=== PATIENT | female | born 1985 | race Caucasian/White ===

== ENCOUNTER → 2016-04-05 | Outpatient (CLI) | payer OTHER ==
--- NOTE | 2016-04-05 18:48 | US ---
Ultrasound Obstetric second trimester, greater than 14 weeks Indication: The estimated gestational age by LMP is 18 weeks and 6 days yielding an EDC of 08/31/2016. Comparison: None. Findings: Number: 1 Presentation: Transverse, head to maternal left Placental Location: Posterior without previa Cervix: 4 cm MVP: 2.8 cm Heart Rate: 149 bpm. Biometry: Biparietal Diameter: 37.12 mm 17 weeks, 3 days Head Circumference: 145.47 mm 17 weeks, 6 days Abdominal Circumference: 119.19 mm 17 weeks, 5 days Femur Length: 25.78 mm 17 weeks, 6 days Humerus Length: 24.87 mm 17 weeks, 6 days Transcerebellar Diameter: 17.4 mm 17 weeks, 4 days HC/AC: 1.22 (1.07-1.29) FL/BPD: 69% FL/AC: 22% Average Ultrasound Age: 17 weeks, 5 days EDC Based on Today's Average Ultrasound Age: 709/08/2016 Estimated weight is 207 gm +/- 30 gm. The estimated weight is at the 4 % based on previous dating. ANATOMY SURVEY: Lateral ventricles, cisterna magna, nuchal thickness, bilateral kidneys, three-vessel cord, spi ne, stomach, and bladder visualized. Four-chamber heart not well visualized. Impression: 1. Living harrison in transverse presentation. 2. Size less than dates. Fetus weight at 4 percentile based on LMP. 3. Limited anatomy. 4. Recommend high value associate consult.
== END ==
LOC: BMCIMAGING 13:47
PROVIDERS: ATTEND Midwife
DX: O36.5920 Maternal care for other known or suspected poor fetal growth, second trimester, not applicable or unspecified (principal); Z3A.18 18 weeks gestation of pregnancy

== ENCOUNTER 2017-12-20 10:22 | Emergency (ER) | payer OTHER ==
--- NOTE | 2017-12-20 10:32 | EDPHY ---
H & P Time Seen by Provider: 12/20/17 10:31 HPI/ROS: HPI: This is a 32-year-old female who presents with Chief Complaint: abdominal pain Location: Suprapubic abdominal Quality: Pain Duration: Since last night Signs and Symptoms: no fever, no nausea, no vomiting, no hematemesis, no blood in stool, no abdominal bloating, no diarrhea, no back pain, no urinary symptoms , no vaginal bleeding/discharge, no indigestion, no chest pain, no shortness of breath Timing: Acute, constant Severity: Moderate Context: Patient has 4 living children, presents with complaints of sudden onset last night of suprapubic left greater than right pain that is constant and nonradiating in nature. She reports that she is midcycle. Last menstrual period was 2 weeks ago. Last sexual intercourse was 1 week ago. Denies any dysuria, vaginal discharge, vaginal bleeding. Patient reports that she is eating and drinking without difficulty. Had a bowel movement this morning. Denies nausea, vomiting, fever, diarrhea. Modifying Factors: Comment: ROS: A comprehensive 10 system review of systems is otherwise negative aside from elements mentioned in the history of present illness. MEDICAL/SURGICAL/SOCIAL HISTORY: Medical history: Generally healthy. Does not take any regular medications. Surgical history: Denies Social history: Nonsmoker. Family history noncontributory. CONSTITUTIONAL: Extremely well-appearing adult white female, awake and alert, no obvious distress HEENT: Atraumatic and normocephalic, PERRL, EOMI. Nares patent; no rhinorrhea; no nasal mucosal edema. Tympanic membranes clear. Oropharynx clear, no exudate and moist pink mucosa. Airway patent. No lymphadenopathy. No meningismus. Cardiovascular: Normal S1/S2, regular rate, regular rhythm, without murmur rub or gallop. PULMONARY/CHEST: Symmetrical and nontender. Clear to auscultation bilaterally. Good air movement. No accessory muscle usage. ABDOMEN: Soft, nondistended, left greater than right suprapubic tenderness, no rebound, no guarding, no peritoneal signs, no masses or organomegaly. No CVAT. EXTREMITIES: 2/2 pulses, strength 5/5, no deformities, no clubbing, no cyanosis or edema. NEUROLOGICAL: no focal neuro deficits. GCS 15. SKIN: Warm and dry, no erythema. no rash. Good capillary refill. Source: Patient Exam Limitations: No limitations Constitutional: Initial Vital Signs Temperature (C) 36.9 C 12/20/17 10:31 Heart Rate 89 12/20/17 10:31 Respiratory Rate 16 12/20/17 10:31 Blood Pressure 149/76 H 12/20/17 10:31 O2 Sat (%) 96 12/20/17 10:31 O2 Delivery Mode Room Air Allergies/Adverse Reactions: No Known Allergies Allergy (Unverified 12/20/17 10:30) Home Medications: Medication Instructions Recorded NK [No Known Home Meds] 12/20/17 Medical Decision Making - Diagnostics Imaging Results: Imaging Impressions Pelvic/Renal Ultrasound 12/20/17 10:42 Impression: Negative ultrasound pelvis. Results called to Neda Marx PA-C, at 11:55 AM. Abdomen Ultrasound 12/20/17 10:43 Impression: 1. Nonvisualization appendix. 2. Minimal peritoneal fluid right lower quadrant. Results called to Neda Marx PA-C, at 11:55 AM. ED Course/Re-evaluation: Patient is extremely concerned about financial cost. She politely refuses urinalysis and laboratory studies "if at all possible." Urine negative. Pelvic ultrasound and right lower quadrant ultrasound ordered 1200: Called by radiologist who advised that pelvic ultrasound shows left ovarian cyst approximately 1 cm in size with no free fluid, no ovarian torsion, good blood flow to both ovaries. Right lower quadrant ultrasound shows minimal fluid with no visualization of the appendix. Mabry score: Right lower quadrant tenderness +2 Elevated temperature greater than 99.1 F +1: No Rebound tenderness +1: No Migration of pain to the right lower quadrant +1: Now Anorexia +1: No Nausea or vomiting +1: No Leukocytosis greater than 15460+ 2: N/A Leukocyte left shift+1: N/A Less than or equal to 3 equals appendicitis unlikely 1205: Reassessed patient. Reports only minimal pain on the left side. No tenderness on the right lower quadrant. Patient does not believe that she has appendicitis and I believe that she is low risk. I will give her referral to OBGYN for left ovarian cyst. This patient was seen under the supervision of my secondary supervising physician. I evaluated care for this patient independently. Discussed this patient with Dr. Kingsley. Differential Diagnosis: Abdominal pain in a female including but not limited to ovarian cyst, pelvic inflammatory disease, ovarian torsion, urinary tract infection, and appendicitis. - Data Points Medications Given: Discontinued Medications Tamsulosin HCl (Flomax) 0.4 mg PO EDNOW ONE Stop: 12/20/17 10:37 Last Admin: 12/20/17 10:38 Dose: Not Given Point of Care Test Results: Urine HCG Results Negative Departure - Departure Disposition: Home, Routine, Self-Care Clinical Impression: Cyst of left ovary Condition: Good Instructions: Ruptured Ovarian Cyst (ED), Ovarian Cyst (ED) Additional Instructions: Take Tylenol 650 mg every 4 hours and/or Ibuprofen 600 mg every 8 hours with food as needed for pain. Apply heating pad for 30 minutes at a time; 2-3 times per day for the next 1-2 days. Follow up with OBGYN in the next 1-3 months for repeat ultrasound. Return at once for any worsening symptoms or concerns. Referrals: [facility] [Clinic] - As per Instructions [facility],. [Clinic] - As per Instructions Neyda Arias DO [Doctor of Osteopathy] - As per Instructions
[2017-12-20] MEDS ORDERED: TAMSULOSIN HCL 0.4 MG CAP PO ONE (10:36)
[2017-12-20 12:25] VITALS: BP 115/73
== END 2017-12-20 12:25 | disposition home or self-care (01) ==
DX: N83.202 Unspecified ovarian cyst, left side (principal)

== ENCOUNTER 2018-01-12 02:01 | Emergency (ER) | payer OTHER ==
--- NOTE | 2018-01-12 02:17 | EDPHY ---
H & P Stated Complaint: c/o cp and intermittent LUE pain since suday am Time Seen by Provider: 01/12/18 02:17 HPI/ROS: HPI CHIEF COMPLAINT: Chest pain. HISTORY OF PRESENT ILLNESS: This is a very pleasant 32-year-old female she is otherwise healthy, denies any significant medical history she states around 8: 00 a.m. Yesterday morning or close to 20 hr ago she developed chest pain. She describes substernal tightness sensation. She states got worse when she would press on her sternum. She states she has been present on her sternum most of the day and getting increasing pain. Feels better when she does not press on her sternum. She reports that it is been constant throughout the day. This evening she noticed sick going more toward her shoulder left-sided. Does not go down her arm to her back. Did not go up her neck. No nausea vomiting. She states given that it was going to order shoulder she became more concerned. She started to get worried about her symptoms. Increasing anxiety in the pain got worse. She now states she is very anxious. Came to the emergency room. She reports that when you press on her sternum hurts worse. Past Medical History: Denies medical history Past Surgical History: Denies surgical history Social History: Denies drugs. Occasional wine. Vape Pen. Family History: Denies any cardiovascular history. ROS REVIEW OF SYSTEMS: 10 Systems were reviewed and negative with the exception of the elements mentioned in the history of present illness. Exam Constitutional anxious, nontoxic, triage nursing summary reviewed, vital signs reviewed, awake/alert. Eyes normal conjunctivae and sclera, EOMI, PERRLA. HENT normal inspection, atraumatic, moist mucus membranes, no epistaxis, neck supple/ no meningismus, no raccoon eyes. Respiratory clear to auscultation bilaterally, normal breath sounds, no respiratory distress, no wheezing. Cardiovascular rate normal, regular rhythm, no murmur, no edema, distal pulses normal. Gastrointestinal soft, non-tender, no rebound, no guarding, normal bowel sounds, no distension, no pulsatile mass. Genitourinary no CVA tenderness. Musculoskeletal no midline vertebral tenderness, full range of motion, no calf swelling, no tenderness of extremities, no meningismus, good pulses, neurovascularly intact. Skin pink, warm, & dry, no rash, skin atraumatic. Neurologic awake, alert and oriented x 3, AAOx3, moves all 4 extremities equally, motor intact, sensory intact, CN II-XII intact, normal cerebellar, normal vision, normal speech. Psychiatric anxious Heme/Lymph/Immune no lymphadenopathy. Differential diagnosis includes but is not limited to: Acute anxiety, panic attack, soft she will spasm, esophagitis, ACS, atypical chest pain, pneumothorax , pneumonia, pulmonary embolism, aortic dissection, congestive heart failure, tumor, musculoskeletal pain, esophageal pain, GERD, peptic ulcer disease, pancreatitis Medical Decision Making: Plan for this patient IV establishment full cardiac surgeon obtain EKG, troponin, D-dimer, chest x-ray, give her GI cocktail on Ativan to see if this improves her symptoms. Re-evaluation: EKG interpretation by me on record in [facility] system. Impression time of EKG 2:16 a.m., sinus rhythm rate of 99 prolonged QT of 370 EKG shows no acute ischemic change no ST elevation or ST depression no significant T-wave abnormality. Troponin 0.01. ED x-ray chest one view negative for acute cardiopulmonary disease. 5:20 a.m. patient re-evaluated this time she is resting comfortably in fact he was sleeping. Re-examination she feels much better she reports to me that after receiving 1 mg Ativan she is feeling much better. She denies any chest pain or chest pressure denies shortness of breath. No pleuritic pain. Her initial troponin was negative. Plan will be for repeat EKG repeat troponin at the 4 hr darío. If these are normal given the patient has no chest pain or shortness of breath and feeling much better after Ativan I believe she can be comfortably discharged home. Most likely cause of pain is possibly musculoskeletal given history, with superimposed anxiety. EKG interpretation by me on record in [facility] system. Impression this is a repeat EKG time 6:03 a.m., sinus rhythm rate of 76 without any signs of acute ischemia no ST elevation no ST depression no T-wave abnormalities. Unremarkable nonischemic EKG. 1st troponin 0.00. D-dimer negative. 2nd troponin pending. 2nd EKG nonischemic. Chest x-ray reveals no evidence of acute cardiopulmonary disease. Discussed return precautions with the patient understands return emergency develops worsening chest pain, shortness of breath, not doing well, vomiting, fever. 2nd troponin 0.00. Patient re-evaluated at 6:20 a.m. Resting comfortably. No chest pain or shortness of breath. Vital signs are stable with a heart rate of 80, blood pressure 94/65 pulse ox 96% Source: Patient - Medical/Surgical History Hx Asthma: No Hx Chronic Respiratory Disease: No Hx Diabetes: No Hx Cardiac Disease: No Hx Renal Disease: No Hx Cirrhosis: No Hx Alcoholism: No Hx HIV/AIDS: No Hx Splenectomy or Spleen Trauma: No Other PMH: c section, mandibular advancement - Social History Smoking Status: Former smoker Constitutional: Initial Vital Signs Temperature (C) 36.8 C 01/12/18 02:03 Heart Rate 98 01/12/18 02:03 Respiratory Rate 16 01/12/18 02:03 Blood Pressure 149/100 H 01/12/18 02:03 O2 Sat (%) 99 01/12/18 02:03 O2 Delivery Mode Room Air Allergies/Adverse Reactions: No Known Allergies Allergy (Verified 01/12/18 02:07) Home Medications: Medication Instructions Recorded NK [No Known Home Meds] 12/20/17 Medical Decision Making - Data Points Laboratory Results: Laboratory Results 01/12/18 02:22 01/12/18 02:22 01/12/18 01/12/18 01/12/18 06:08 03:50 02:28 WBC RBC Hgb Hct MCV MCH MCHC RDW Plt Count MPV Neut % (Auto) Lymph % (Auto) Wilcox % (Auto) Eos % (Auto) Baso % (Auto) Nucleat RBC Rel Count Absolute Neuts (auto) Absolute Lymphs (auto) Absolute Monos (auto) Absolute Eos (auto) Absolute Basos (auto) Absolute Nucleated RBC Immature Gran % Immature Gran # PT INR APTT D-Dimer Sodium Potassium Chloride Carbon Dioxide Anion Gap BUN Creatinine Estimated GFR Glucose Calcium Magnesium Total Bilirubin Conjugated Bilirubin Unconjugated Bilirubin AST ALT Alkaline Phosphatase POC Troponin I 0.00 ng/mL ng/mL 0.01 ng/mL ng/mL (0.00-0.08) (0.00-0.08) NT-Pro-B Natriuret Pep Total Protein Albumin Lipase Beta HCG, Qual Urine Color YELLOW Urine Appearance HAZY Urine pH 6.0 (5.0-7.5) Ur Specific Byron 1.014 (1.002-1.030) Urine Protein NEGATIVE (NEGATIVE) Urine Ketones NEGATIVE (NEGATIVE) Urine Blood NEGATIVE (NEGATIVE) Urine Nitrate NEGATIVE (NEGATIVE) Urine Bilirubin NEGATIVE (NEGATIVE) Urine Urobilinogen NEGATIVE EU EU (0.2-1.0) Ur Leukocyte Esterase NEGATIVE (NEGATIVE) Urine Glucose NEGATIVE (NEGATIVE) Urine Opiates Screen NEGATIVE (NEGATIVE) Urine Barbiturates NEGATIVE (NEGATIVE) Ur Phencyclidine Scrn NEGATIVE (NEGATIVE) Ur Amphetamine Screen NEGATIVE (NEGATIVE) U Benzodiazepines Scrn NEGATIVE (NEGATIVE) Urine Cocaine Screen NEGATIVE (NEGATIVE) U Marijuana (THC) Screen NEGATIVE (NEGATIVE) 01/12/18 01/12/18 01/12/18 02:22 02:22 02:22 WBC RBC Hgb Hct MCV MCH MCHC RDW Plt Count MPV Neut % (Auto) Lymph % (Auto) Wilcox % (Auto) Eos % (Auto) Baso % (Auto) Nucleat RBC Rel Count Absolute Neuts (auto) Absolute Lymphs (auto) Absolute Monos (auto) Absolute Eos (auto) Absolute Basos (auto) Absolute Nucleated RBC Immature Gran % Immature Gran # PT 12.9 SEC SEC (12.0-15.0) INR 0.95 (0.83-1.16) APTT 27.5 SEC SEC (23.0-38.0) D-Dimer < 0.27 ug/mLFEU ug/mLFEU (0.00-0.50) Sodium 140 mEq/L mEq/L (135-145) Potassium 3.4 mEq/L mEq/L (3.3-5.0) Chloride 107 mEq/L mEq/L (97-110) Carbon Dioxide 23 mEq/l mEq/l (22-31) Anion Gap 10 mEq/L mEq/L (6-14) BUN 14 mg/dL mg/dL (7-23) Creatinine 0.7 mg/dL mg/dL (0.6-1.0) Estimated GFR > 60 Glucose 115 mg/dL H mg/dL (70-100) Calcium 9.6 mg/dL mg/dL (8.5-10.4) Magnesium 1.6 mg/dL mg/dL (1.6-2.3) Total Bilirubin 0.3 mg/dL mg/dL (0.1-1.4) Conjugated Bilirubin 0.2 mg/dL mg/dL (0.0-0.5) Unconjugated Bilirubin 0.1 mg/dL mg/dL (0.0-1.1) AST 16 IU/L IU/L (14-46) ALT 24 IU/L IU/L (9-52) Alkaline Phosphatase 79 IU/L IU/L (38-126) POC Troponin I NT-Pro-B Natriuret Pep 19 pg/mL pg/mL (0-125) Total Protein 7.2 g/dL g/dL (6.3-8.2) Albumin 4.3 g/dL g/dL (3.5-5.0) Lipase 215 IU/L IU/L (23-300) Beta HCG, Qual NEGATIVE Urine Color Urine Appearance Urine pH Ur Specific Byron Urine Protein Urine Ketones Urine Blood Urine Nitrate Urine Bilirubin Urine Urobilinogen Ur Leukocyte Esterase Urine Glucose Urine Opiates Screen Urine Barbiturates Ur Phencyclidine Scrn Ur Amphetamine Screen U Benzodiazepines Scrn Urine Cocaine Screen U Marijuana (THC) Screen 01/12/18 02:22 WBC 6.40 10^3/uL 10^3/uL (3.80-9.50) RBC 4.10 10^6/uL L 10^6/uL (4.18-5.33) Hgb 12.6 g/dL g/dL (12.6-16.3) Hct 36.1 % L % (38.0-47.0) MCV 88.0 fL fL (81.5-99.8) MCH 30.7 pg pg (27.9-34.1) MCHC 34.9 g/dL g/dL (32.4-36.7) RDW 12.5 % % (11.5-15.2) Plt Count 278 10^3/uL 10^3/uL (150-400) MPV 9.4 fL fL (8.7-11.7) Neut % (Auto) 49.2 % % (39.3-74.2) Lymph % (Auto) 39.2 % % (15.0-45.0) Wilcox % (Auto) 7.5 % % (4.5-13.0) Eos % (Auto) 3.4 % % (0.6-7.6) Baso % (Auto) 0.5 % % (0.3-1.7) Nucleat RBC Rel Count 0.0 % % (0.0-0.2) Absolute Neuts (auto) 3.15 10^3/uL 10^3/uL (1.70-6.50) Absolute Lymphs (auto) 2.51 10^3/uL 10^3/uL (1.00-3.00) Absolute Monos (auto) 0.48 10^3/uL 10^3/uL (0.30-0.80) Absolute Eos (auto) 0.22 10^3/uL 10^3/uL (0.03-0.40) Absolute Basos (auto) 0.03 10^3/uL 10^3/uL (0.02-0.10) Absolute Nucleated RBC 0.00 10^3/uL 10^3/uL (0-0.01) Immature Gran % 0.2 % % (0.0-1.1) Immature Gran # 0.01 10^3/uL 10^3/uL (0.00-0.10) PT INR APTT D-Dimer Sodium Potassium Chloride Carbon Dioxide Anion Gap BUN Creatinine Estimated GFR Glucose Calcium Magnesium Total Bilirubin Conjugated Bilirubin Unconjugated Bilirubin AST ALT Alkaline Phosphatase POC Troponin I NT-Pro-B Natriuret Pep Total Protein Albumin Lipase Beta HCG, Qual Urine Color Urine Appearance Urine pH Ur Specific Byron Urine Protein Urine Ketones Urine Blood Urine Nitrate Urine Bilirubin Urine Urobilinogen Ur Leukocyte Esterase Urine Glucose Urine Opiates Screen Urine Barbiturates Ur Phencyclidine Scrn Ur Amphetamine Screen U Benzodiazepines Scrn Urine Cocaine Screen U Marijuana (THC) Screen Medications Given: Discontinued Medications Sodium Chloride (Ns) 1,000 mls @ 0 mls/hr IV EDNOW ONE; Wide Open PRN Reason: Protocol Stop: 01/12/18 02:19 Last Admin: 01/12/18 02:29 Dose: 1,000 mls Lorazepam (Ativan Injection) 1 mg IVP EDNOW ONE Stop: 01/12/18 02:26 Last Admin: 01/12/18 02:29 Dose: 1 mg Point of Care Test Results: Chemistry 01/12/18 01/12/18 06:08 02:28 POC Troponin I 0.00 ng/mL ng/mL 0.01 ng/mL ng/mL (0.00-0.08) (0.00-0.08) Departure - Departure Disposition: Home, Routine, Self-Care Clinical Impression: Anxiety Chest pain Qualifiers: Chest pain type: unspecified Qualified Code(s): R07.9 - Chest pain, unspecified Condition: Good Instructions: Chest Pain (ED), Anxiety (ED) Additional Instructions: 1. [place] diet over the next 24-48 hours no spicy fatty greasy foods. 2. Return to the emergency room if you develop worsening chest pain, shortness of breath or not doing well. Referrals: NONE *PRIMARY CARE P,. [Primary Care Provider] - As per Instructions
[2018-01-12] MEDS ORDERED: NS 1,000 ML IV ONE (02:18)
[2018-01-12] MEDS ORDERED: LORazepam 2 MG/ML INJ IVP ONE (02:25)
[2018-01-12 02:36] LABS: PLATELET COUNT 278 10^3/uL (150-400)
[2018-01-12 02:49] LABS: INR 0.95 (0.83-1.16); PROTIME(PATIENT) 12.9 SEC (12.0-15.0)
[2018-01-12 06:31] VITALS: BP 102/68
--- NOTE | 2018-01-14 07:06 | CPEKG ---
Test Reason : OPEN Blood Pressure : / mmHG Vent. Rate : 076 BPM Atrial Rate : 076 BPM P-R Int : 161 ms QRS Dur : 094 ms QT Int : 393 ms P-R-T Axes : 053 087 059 degrees QTc Int : 442 ms Sinus rhythm Confirmed by Regulo Hopper ([id number]) on 01/14/2018 7:05:17 AM Referred By: Confirmed By:Regulo Hopper
--- NOTE | 2018-01-14 07:06 | CPEKG ---
Test Reason : OPEN Blood Pressure : / mmHG Vent. Rate : 099 BPM Atrial Rate : 097 BPM P-R Int : 162 ms QRS Dur : 100 ms QT Int : 370 ms P-R-T Axes : 060 079 018 degrees QTc Int : 475 ms Sinus rhythm Confirmed by Regulo Hopper ([id number]) on 01/14/2018 7:05:16 AM Referred By: Confirmed By:Regulo Hopper
== END 2018-01-12 06:30 | disposition home or self-care (01) ==
DX: F41.9 Anxiety disorder, unspecified (principal); R07.9 Chest pain, unspecified; E86.9 Volume depletion, unspecified; Z87.891 Personal history of nicotine dependence
CPT/HCPCS: 80305; 84484-PO; 96374; J2060